=== PATIENT | female | born 2000 | race Caucasian/White ===

== ENCOUNTER 2024-10-07 15:34 | Observation (INO) | payer BC, MEDICAID ==
[2024-10-07 16:46] LABS: BILIRUBIN,URINE NEGATIVE (NEGATIVE); COLOR,URINE YELLOW; GLUCOSE,URINE NEGATIVE (NEGATIVE); KETONES,URINE TRACE mg/dL (NEGATIVE); LEUKOCYTE ESTERASE,URINE NEGATIVE (NEGATIVE); NITRITE,URINE NEGATIVE (NEGATIVE); OCCULT BLOOD,URINE NEGATIVE (NEGATIVE); PROTEIN,URINE NEGATIVE (NEGATIVE); UROBILINOGEN,URINE 0.2 EU/dL (<2.0)
[2024-10-07 16:51] LABS: APPEARANCE,URINE CLEAR
[2024-10-07 16:54] LABS: RBC,URINE NONE SEEN (0-2/HPF)
[2024-10-07 16:55] LABS: BACTERIA,URINE FEW (NEGATIVE); EPITHELIAL CELLS,URINE FEW (NONE-FEW); MUCUS,URINE LIGHT (NONE-MOD); WBC,URINE 0-1 (0-5/HPF)
[2024-10-07] MEDS: Acetaminophen 500 MG Tab PO ONE (18:15)
[2024-10-07] MEDS ORDERED: Sodium Chloride 0.9% 2.5 ML Syringe FLUSH PRN (18:45)
[2024-10-07] MEDS ORDERED: Calcium Gluconate 10% 1 GM/10 ML SDV IV PRN (18:45)
[2024-10-07] MEDS ORDERED: Sodium Chloride 0.9% 20 ML SDV IV PRN (18:45)
[2024-10-07] MEDS ORDERED: Sodium Chloride 0.9% 10 ML Syringe FLUSH PRN (18:45)
[2024-10-07] MEDS ORDERED: MAGNESIUM SULFATE 4 GM/100 ML ONE (19:12)
[2024-10-07] MEDS: Betamethasone Acetate/Betamethasone Sod Phosphate 6 MG/1 ML MDV IM SCH (19:28)
[2024-10-07 19:58] LABS: CANDIDA DNA PROBE NEGATIVE (NEGATIVE); GARDNERELLA DNA PROBE POSITIVE (NEGATIVE); TRICHOMONAS DNA PROBE NEGATIVE (NEGATIVE)
[2024-10-07] MEDS: Magnesium Sulfate 2 GM/50 mL 6 GM in Premix Bag 1 BAG IV ONE (20:20)
[2024-10-07] MEDS ORDERED: Lidocaine 1% 20 ML MDV ONE (20:44)
[2024-10-07] MEDS: Magnesium Sulfate 20 GM/500mL 20 GM/500 ML BAG IV SCH (20:50)
[2024-10-07 21:23] LABS: HEMOGLOBIN 12.4 g/dL (12.0-16.0); MEAN CORPUSCULAR HEMOGLOBIN 29.8 pg (28.0-32.0); MEAN CORPUSCULAR HGB CONC 33.5 g/dL (32.0-36.0); MEAN CORPUSCULAR VOLUME 88.9 fL (83.0-99.0); MEAN PLATELET VOLUME 11.7 fL (9.4-12.3); PLATELET COUNT,PLT 221 K/uL (150-400); RED BLOOD CELL COUNT 4.16 M/uL (4.10-5.30); WHITE BLOOD CELL COUNT,WBC 15.98 K/uL (3.9-11.3)
[2024-10-07] MEDS: Ampicillin 2 GM in Sodium Chloride 0.9% 100 ML IV SCH (21:28)
[2024-10-07] MEDS ORDERED: Sodium Chloride 0.9% 100 ML ONE (21:32)
[2024-10-07 21:52] LABS: A/G RATIO 0.8 (0.9-1.6); ALANINE AMINOTRANSFERASE,ALT 10 IU/L (14-63); ALBUMIN 2.8 g/dL (3.4-5.0); ALKALINE PHOSPHATASE 104 U/L (46-116); ASPARTATE AMNIOTRANSFERASE,AST 24 IU/L (15-37); BILIRUBIN TOTAL 0.3 mg/dL (0.2-1.0); BLOOD UREA NITROGEN,BUN 7 mg/dL (7.0-18.0); CALCIUM 8.7 mg/dL (8.5-10.1); CARBON DIOXIDE,CO2 22.4 mmol/L (21.0-32.0); CHLORIDE,CL 102 mmol/L (98-107); CREATININE 0.4 mg/dL (0.6-1.0); GLUCOSE RANDOM 69 mg/dL (74-106); POTASSIUM,K 4.3 mmol/L (3.5-5.1); PROTEIN TOTAL,TP 6.5 g/dL (6.4-8.2); SODIUM,NA 138 mmol/L (136-145)
[2024-10-07 21:55] LABS: ESTIMATED GFR 141 mL/min (>60)
[2024-10-07] MEDS ORDERED: metroNIDAZOLE 250 MG Tab PO SCH (22:30)
[2024-10-07] MEDS: metroNIDAZOLE 250 MG Tab PO SCH (23:04)
[2024-10-08] MEDS: Ampicillin 2 GM in Sodium Chloride 0.9% 100 ML IV SCH (01:26)
[2024-10-08] MEDS: Ondansetron 4 MG/2 ML SDV IVPUSH PRN (04:42)
[2024-10-08] MEDS: Ampicillin 1 GM in Sodium Chloride 0.9% 50 ML IV SCH (09:12)
[2024-10-08] MEDS: Acetaminophen 500 MG Tab PO PRN (09:40)
[2024-10-09] MEDS ORDERED: NIFEdipine 10 MG Cap ONE (07:49)
[2024-10-09] MEDS: NIFEdipine 10 MG Cap PO ONE (08:14)
[2024-10-09] MEDS ORDERED: NIFEdipine 10 MG Cap PO ONE (10:00)
[2024-10-09] MEDS: NIFEdipine 10 MG Cap ONE (10:05)
[2024-10-09] MEDS ORDERED: Acetaminophen/oxyCODONE 325-10 MG Tab PO ONE (12:43)
== END 2024-10-09 12:57 | disposition home or self-care (01) ==
LOC: MW.OB 15:34 → MW.OBCHECK 15:34 → MW.OB 18:45
PROVIDERS: ADMIT Obstetrics & Gynecology Gynecology; ATTEND Obstetrics & Gynecology Obstetrics
DX: O47.03 False labor before 37 completed weeks of gestation, third trimester (principal); O26.893 Other specified pregnancy related conditions, third trimester; R10.9 Unspecified abdominal pain; N76.0 Acute vaginitis; B96.89 Other specified bacterial agents as the cause of diseases classified elsewhere; O99.213 Obesity complicating pregnancy, third trimester; E66.09 Other obesity due to excess calories; Z79.899 Other long term (current) drug therapy; Z3A.34 34 weeks gestation of pregnancy
CPT/HCPCS: 36415; 59025; 76810; 80053; 81001; 84112; 85027; 86850; 86900; 86901; 87480; 87510; 87660; 96365; 96367; 96372; 96375; 96376; A9270; G0378; J0290; J0702; J2405; J3475; 96366; J3490

== ENCOUNTER 2024-11-04 03:01 | Inpatient (IN) | payer BC, MEDICAID ==
[2024-11-04] MEDS ORDERED: Citric Acid/Sodium Citrate Solution 30 ML Cup PO ONE (05:08)
[2024-11-04] MEDS ORDERED: Sodium Chloride 0.9% 2.5 ML Syringe FLUSH PRN (05:08)
[2024-11-04] MEDS ORDERED: Sodium Chloride 0.9% 10 ML Syringe FLUSH PRN (05:08)
[2024-11-04] MEDS ORDERED: CEFAZOLIN IVPUSH ONE (05:08)
[2024-11-04] MEDS ORDERED: STERILE IVPUSH ONE (05:08)
[2024-11-04] MEDS ORDERED: WATER FOR INJECTION IVPUSH ONE (05:08)
[2024-11-04] MEDS ORDERED: Lactated Ringers 1,000 ML IV SCH (05:15)
[2024-11-04] MEDS ORDERED: Oxytocin/0.9 % Sodium Chloride 30 UNIT/500 ML BAG IV SCH (05:15)
[2024-11-04 05:50] LABS: BASOPHILS ABSOLUTE AUTO 0.04 K/uL (0.00-0.20); BASOPHILS PERCENT AUTO 0.3 % (0.0-1.0); EOSINOPHILS ABSOLUTE AUTO 0.04 K/uL (0.00-0.45); EOSINOPHILS PERCENT AUTO 0.3 % (0.0-6.0); IMMATURE GRAN ABSOLUTE AUTO 0.07 K/uL (0.00-0.05); IMMATURE GRAN PERCENT AUTO 0.5 % (0.0-0.4); LYMPHOCYTES ABSOLUTE AUTO 2.76 K/uL (1.00-4.80); LYMPHOCYTES PERCENT AUTO 18.7 % (24.0-44.0); MEAN PLATELET VOLUME 11.3 fL (9.4-12.3); MONOCYTES ABSOLUTE AUTO 0.73 K/uL (0.00-0.80); MONOCYTES PERCENT AUTO 4.9 % (0.0-8.0); NEUTROPHILS ABSOLUTE AUTO 11.15 K/uL (1.80-7.70); NEUTROPHILS PERCENT AUTO 75.3 % (41.0-71.0); NRBC ABSOLUTE 0.00 K/uL (0.00-0.02); NRBC PERCENT 0.0 /100WBC (0.0-0.2); PLATELET COUNT,PLT 232 K/uL (150-400); RED BLOOD CELL COUNT 4.36 M/uL (4.10-5.30); WHITE BLOOD CELL COUNT,WBC 14.79 K/uL (3.9-11.3)
[2024-11-04 05:52] LABS: APPEARANCE,URINE CLEAR; GLUCOSE,URINE NEGATIVE (NEGATIVE); OCCULT BLOOD,URINE TRACE-INTACT (NEGATIVE)
[2024-11-04 06:00] LABS: EPITHELIAL CELLS,URINE FEW (NONE-FEW)
[2024-11-04 06:08] LABS: CANDIDA DNA PROBE NEGATIVE (NEGATIVE); GARDNERELLA DNA PROBE POSITIVE (NEGATIVE); TRICHOMONAS DNA PROBE NEGATIVE (NEGATIVE)
[2024-11-04] MEDS: Lactated Ringers 1,000 ML IV ONE (06:23)
[2024-11-04] MEDS: Lactated Ringers 1,000 ML IV SCH (06:25)
[2024-11-04] MEDS: metroNIDAZOLE/Normal Saline 500 MG in Premix Bag 1 BAG IV ONE (10:15)
== END 2024-11-04 13:50 | disposition home or self-care (01) | DRG 566 ==
LOC: MW.OBCHECK 03:01 → MW.OB 03:02 → MW.OBCHECK 05:09 → MW.OB 05:09
PROVIDERS: ADMIT Obstetrics & Gynecology; ATTEND Obstetrics & Gynecology Obstetrics
DX: O34.219 Maternal care for unspecified type scar from previous cesarean delivery (principal); Z3A.37 37 weeks gestation of pregnancy; O99.214 Obesity complicating childbirth; Z98.890 Other specified postprocedural states
CPT/HCPCS: 36415; 59025; 81001; 84112; 85025; 86592; 86850; 86900; 86901; 87480; 87510; 87660; 99234; A9270-GY; J1836; J7120

== ENCOUNTER 2024-11-10 14:25 | Inpatient (IN) | payer BC, MEDICAID ==
[2024-11-10] MEDS ORDERED: Sodium Chloride 0.9% 10 ML Syringe FLUSH PRN ×2 (15:14→15:36)
[2024-11-10] MEDS ORDERED: Sodium Chloride 0.9% 2.5 ML Syringe FLUSH PRN ×2 (15:14→15:36)
[2024-11-10] MEDS ORDERED: Lactated Ringers 1,000 ML IV SCH ×3 (15:15→16:00)
[2024-11-10] MEDS ORDERED: Citric Acid/Sodium Citrate Solution 30 ML Cup PO ONE (15:36)
[2024-11-10] MEDS ORDERED: ceFAZolin 2 GM in Water For Injection, Sterile 20 ML IVPUSH ONE (15:36)
[2024-11-10] MEDS ORDERED: Oxytocin/0.9 % Sodium Chloride 30 UNIT/500 ML BAG IV SCH (15:45)
[2024-11-10] MEDS ORDERED: diphenhydrAMINE 50 MG/ML SDV IVPUSH PRN (15:48)
[2024-11-10] MEDS ORDERED: Ondansetron 4 MG/2 ML SDV IVPUSH PRN ×3 (15:48→18:51)
[2024-11-10] MEDS ORDERED: Naloxone 0.4 MG/ML SDV IVPUSH PRN ×2 (15:48→18:51)
[2024-11-10] MEDS ORDERED: Lanolin 100% Cream 7 GM Tube TOP PRN (15:48)
[2024-11-10] MEDS ORDERED: Acetaminophen/oxyCODONE 325-5 MG Tab PO PRN ×2 (15:48)
[2024-11-10 16:18] LABS: BASOPHILS ABSOLUTE AUTO 0.02 K/uL (0.00-0.20); BASOPHILS PERCENT AUTO 0.2 % (0.0-1.0); EOSINOPHILS ABSOLUTE AUTO 0.03 K/uL (0.00-0.45); EOSINOPHILS PERCENT AUTO 0.2 % (0.0-6.0); IMMATURE GRAN ABSOLUTE AUTO 0.13 K/uL (0.00-0.05); IMMATURE GRAN PERCENT AUTO 1.0 % (0.0-0.4); LYMPHOCYTES ABSOLUTE AUTO 2.68 K/uL (1.00-4.80); LYMPHOCYTES PERCENT AUTO 20.3 % (24.0-44.0); MEAN PLATELET VOLUME 11.3 fL (9.4-12.3); MONOCYTES ABSOLUTE AUTO 0.67 K/uL (0.00-0.80); MONOCYTES PERCENT AUTO 5.1 % (0.0-8.0); NEUTROPHILS ABSOLUTE AUTO 9.70 K/uL (1.80-7.70); NEUTROPHILS PERCENT AUTO 73.2 % (41.0-71.0); NRBC ABSOLUTE 0.00 K/uL (0.00-0.02); NRBC PERCENT 0.0 /100WBC (0.0-0.2); PLATELET COUNT,PLT 243 K/uL (150-400); RED BLOOD CELL COUNT 4.47 M/uL (4.10-5.30); WHITE BLOOD CELL COUNT,WBC 13.23 K/uL (3.9-11.3)
[2024-11-10 16:22] LABS: APPEARANCE,URINE SLT CLOUDY; GLUCOSE,URINE NEGATIVE (NEGATIVE); OCCULT BLOOD,URINE NEGATIVE (NEGATIVE)
[2024-11-10 16:29] LABS: EPITHELIAL CELLS,URINE OCCASIONAL (NONE-FEW)
[2024-11-10 16:40] LABS: A/G RATIO 0.6 (0.9-1.6); ALANINE AMINOTRANSFERASE,ALT 13 IU/L (14-63); ASPARTATE AMNIOTRANSFERASE,AST 14 IU/L (15-37); BILIRUBIN TOTAL 0.3 mg/dL (0.2-1.0); BLOOD UREA NITROGEN,BUN 9 mg/dL (7.0-18.0); CARBON DIOXIDE,CO2 21.8 mmol/L (21.0-32.0); CHLORIDE,CL 104 mmol/L (98-107); CREATININE 0.7 mg/dL (0.6-1.0); GLUCOSE RANDOM 89 mg/dL (74-106); LACTATE DEHYDROGENASE,LDH 170 U/L (81-234); POTASSIUM,K 3.8 mmol/L (3.5-5.1); PROTEIN TOTAL,TP 6.9 g/dL (6.4-8.2); SODIUM,NA 139 mmol/L (136-145)
[2024-11-10 16:42] LABS: ESTIMATED GFR 123 mL/min (>60)
[2024-11-10] MEDS ORDERED: Ketorolac 30 MG/ML SDV ONE (17:01)
[2024-11-10] MEDS ORDERED: Oxytocin 10 Units/1 ML SDV ONE (17:01)
[2024-11-10] MEDS ORDERED: Ropivacaine 0.5% 5 MG/ML 30 ML SDV ONE (17:01)
[2024-11-10] MEDS ORDERED: Morphine PF 10 MG/10 ML SDV ONE (17:01)
[2024-11-10] MEDS ORDERED: Ondansetron 4 MG/2 ML SDV ONE (17:01)
[2024-11-10] MEDS ORDERED: fentaNYL 100 MCG/2 ML SDV ONE (17:01)
[2024-11-10] MEDS ORDERED: fentaNYL 50 MCG/ML SDV IVPUSH PRN (18:51)
[2024-11-10] MEDS ORDERED: Albuterol 0.083% 2.5 MG/3 ML Neb Soln NEB PRN (18:51)
[2024-11-10] MEDS ORDERED: fentaNYL 100 MCG/2 ML SDV IVPUSH PRN (18:51)
[2024-11-10] MEDS ORDERED: Nalbuphine 10 MG/1 ML Vial IVPUSH PRN (18:51)
[2024-11-10 19:08] LABS: PH,UMBILICAL ARTERIAL 7.25 (7.18-7.38); PH,UMBILICAL VENOUS 7.29 (7.25-7.45)
[2024-11-10] MEDS: diphenhydrAMINE 50 MG/ML SDV IVPUSH PRN (23:05)
[2024-11-11] MEDS: Ketorolac 30 MG/ML SDV IVPUSH SCH ×2 (00:04→19:17)
[2024-11-11 06:08] LABS: MEAN PLATELET VOLUME 11.7 fL (9.4-12.3); NRBC ABSOLUTE 0.00 K/uL (0.00-0.02); NRBC PERCENT 0.0 /100WBC (0.0-0.2); PLATELET COUNT,PLT 260 K/uL (150-400); RED BLOOD CELL COUNT 4.07 M/uL (4.10-5.30); WHITE BLOOD CELL COUNT,WBC 24.19 K/uL (3.9-11.3)
[2024-11-11 08:00] LABS: CREATININE,URINE RAND 36.0 mg/dL; PROTEIN CREATININE RATIO,URINE 0.2; PROTEIN,URINE RANDOM 8.5 mg/dL (<11.9)
[2024-11-11] MEDS: Acetaminophen/oxyCODONE 325-5 MG Tab PO PRN (21:21)
== END 2024-11-13 13:57 | disposition home or self-care (01) | DRG 540 ==
LOC: MW.OBCHECK 14:25 → MW.OB 15:09 → OBSVTOIN 18:07 → MW.OBCHECK 18:22 → MW.OB 11-11 00:37
PROVIDERS: ADMIT Obstetrics & Gynecology; ATTEND Obstetrics & Gynecology Obstetrics
PROC: 10D00Z1 Extraction of Products of Conception, Low, Open Approach (ICD-10-PCS; principal; 2024-11-10 17:23)
DX: O34.211 Maternal care for low transverse scar from previous cesarean delivery (principal); O99.214 Obesity complicating childbirth; Z3A.38 38 weeks gestation of pregnancy; Z37.0 Single live birth; Z88.8 Allergy status to other drugs, medicaments and biological substances; Z79.899 Other long term (current) drug therapy
CPT/HCPCS: 01961; 36415; 64488; 80053; 81001; 82570; 82803; 83615; 84156; 85025; 85027; 86592; 86850; 86900; 86901; A9270-GY; J0173; J0665; J0690; J1100; J1200; J1885; J2274; J2371; J2405; J2590; J2795; J3010